=== PATIENT | female | born 1960 | race Caucasian/White ===

== ENCOUNTER → 2024-04-28 16:09 | Outpatient (REF) | payer BC, SELFPAY | LOC: OLAB 16:09 | PROVIDERS: ATTENDING PHYSICIAN Obstetrics & Gynecology; FAMILY PHYSICIAN Family Medicine | DX: N39.0 Urinary tract infection, site not specified (principal) | CPT/HCPCS: 87086 ==

== ENCOUNTER → 2024-05-14 09:56 | Outpatient (REF) | payer BC, SELFPAY ==
[2024-05-14 10:43] LABS: % Eosinophils 3.5 % (0-6); % Immature Granulocytes 0.2 % (0-0.5); % Lymphocytes 21.9 % (20.5-51.1); % Monocytes 8.7 % (1.7-9.3); % Neutrophils 64.7 % (42.2-75.2); Absolute Basophils 0.1 10^3/uL (0-0.2); Absolute Eosinophils 0.2 10^3/uL (0-0.7); Absolute Lymphocytes 1.4 10^3/uL (1.2-3.4); Absolute Monocytes 0.5 10^3/uL (0.1-0.6); Hematocrit 44.5 % (37.0-47.0); Hemoglobin 14.8 g/dL (12.0-16.0); Mean Corp Hgb Conc. 33.3 g/dL (33.0-37.0); Mean Corpuscular Hgb 28.9 pg (27.0-31.0); Mean Corpuscular Volume 86.9 fL (81.0-99.0); Nucleated Red Blood Cells % 0 %; Platelet Count 188 10^3/uL (130-400); Red Blood Cell Count 5.12 10^6/uL (4.20-5.40); White Blood Cell Count 6.2 10^3/uL (4.8-10.8)
[2024-05-14 11:00] LABS: ALT (SGPT) 34 U/L (0-35); AST (SGOT) 35 U/L (14-36); Albumin 4.7 g/dl (3.5-5.0); Alkaline Phosphatase 84 U/L (38-126); Blood Urea Nitrogen 13 mg/dl (7-17); Carbon Dioxide 30 mmol/L (22-30); Chloride 99 mmol/L (98-107); Glucose 104 mg/dl (70-99); Potassium 4.2 mmol/L (3.5-5.1); Sodium 136 mmol/L (135-145); Total Bilirubin 1.3 mg/dl (0.2-1.3); Total Protein 7.9 g/dl (6.3-8.2); eGFR > 60.00
[2024-05-14 11:03] LABS: C-Reactive Protein < 5.00 mg/L (0.0-10.00)
[2024-05-14 11:18] LABS: Vitamin D, 25-OH*** 26.9 ng/mL (30-80)
[2024-05-14 11:32] LABS: TSH Reflex To Free T4 1.48 uIU/ml (0.47-4.68)
[2024-05-14 11:36] LABS: Ferritin 32.3 ng/ml (11.1-264.0)
[2024-05-14 11:51] LABS: Vitamin B12 961 pg/ml (239-931)
[2024-05-14 23:13] LABS: IgA 312 mg/dl (70-400)
== END ==
LOC: OLAB 09:56
PROVIDERS: ATTENDING PHYSICIAN Internal Medicine; FAMILY PHYSICIAN Family Medicine
DX: G62.9 Polyneuropathy, unspecified (principal); R89.4 Abnormal immunological findings in specimens from other organs, systems and tissues
CPT/HCPCS: 80053; 82306; 82607; 82728; 82784; 83516; 84443; 85025; 86140; 86231

== ENCOUNTER → 2024-05-21 09:53 | Outpatient (REF) | payer BC, SELFPAY ==
[2024-05-21 10:41] LABS: HDL Cholesterol 99 mg/dl; LDL Cholesterol, Calculated 89 mg/dl; Total Cholesterol 220 mg/dl (50-199); Triglyceride 160 mg/dl (10-149); Very Low Density Lipoprotein 32 mg/dl (0-30)
== END ==
LOC: OLAB 09:53
PROVIDERS: ATTENDING PHYSICIAN Physician Assistant; FAMILY PHYSICIAN Family Medicine
DX: Z00.00 Encounter for general adult medical examination without abnormal findings (principal)
CPT/HCPCS: 80061

== ENCOUNTER → 2024-09-21 19:26 | Outpatient (REF) | payer BC, SELFPAY | LOC: WDC 19:26 | PROVIDERS: ATTENDING PHYSICIAN Internal Medicine Hematology & Oncology; FAMILY PHYSICIAN Family Medicine | DX: Z12.31 Encounter for screening mammogram for malignant neoplasm of breast (principal) | CPT/HCPCS: 77063; 77067 ==

== ENCOUNTER 2024-11-26 11:09 | Emergency (ER) | payer BC, SELFPAY ==
[2024-11-26 11:13] VITALS: BP 175/98
[2024-11-26 11:50] LABS: Hematocrit 39.4 % (37.0-47.0); Hemoglobin 13.3 g/dL (12.0-16.0); Mean Corp Hgb Conc. 33.8 g/dL (33.0-37.0); Mean Corpuscular Hgb 28.9 pg (27.0-31.0); Mean Corpuscular Volume 85.5 fL (81.0-99.0); Mean Platelet Volume 10.5 fL (7.4-10.4); Platelet Count 160 10^3/uL (130-400); Red Blood Cell Count 4.61 10^6/uL (4.20-5.40); Red Cell Dist. Width 12.5 % (11.5-14.5)
[2024-11-26 11:57] LABS: ALT (SGPT) 48 U/L (0-35); AST (SGOT) 46 U/L (14-36); Albumin 4.1 g/dl (3.5-5.0); Alkaline Phosphatase 77 U/L (38-126); Blood Urea Nitrogen 18 mg/dl (7-17); Carbon Dioxide 30 mmol/L (22-30); Chloride 99 mmol/L (98-107); Glucose 102 mg/dl (70-99); Potassium 4.4 mmol/L (3.5-5.1); Sodium 134 mmol/L (135-145); eGFR > 60.00
[2024-11-26 12:05] LABS: Troponin I < 0.012 ng/ml
--- NOTE | 2024-11-26 12:19 | ED.GENMED ---
History of Present Illness
<RYLEE Bennett - Last Filed: 11/27/24 23:04>
General
Chief Complaint: Chest Pain
Source: patient
Exam Limitations: none
Time Seen by Provider: 11/26/24 12:14
History of Present Illness
History of Present Illness:
Patient is a 64-year-old female who presents to the ER for evaluation. Patient was sent by urgent care for evaluation of chest pressure. Patient reports since she has been intermittently sick with headaches nasal congestion body aches
intermittent fevers. Today at 7 AM she woke up with chest pressure. She was seen in urgent care and her blood pressure was elevated and was sent for further evaluation. She reports she is under a lot of stress with her job and feels that this is
why her blood pressure was up.
She reports since 7 AM her she has had pressure mostly center/left side of chest. She denies shortness of breath. She is a former smoker.
Past History
<RYLEE Bennett - Last Filed: 11/27/24 23:04>
Past History
ED Past Medical History: COPD and Other
ED Past Surgical History: None
Social History
Tobacco: Former smoker
Living: with family
Employment: Employed
Family History
Family History: Other
Review of Systems
<RYLEE Bennett - Last Filed: 11/27/24 23:04>
Review of Systems
Allergies reviewed?: Yes
All Other Systems: ROS reviewed and negative except as documented in HPI and ROS
Constitutional: Reports no symptoms
EENT: Reports no symptoms
Respiratory: Denies cough or trouble breathing
Cardiac: Reports chest pain; Denies diaphoresis, palpitations or syncope
ABD/GI: Reports no symptoms
: Reports no symptoms
Musculoskeletal: Reports no symptoms
Skin: Reports no symptoms
Neurological: Reports no symptoms
Psychiatric: Reports no symptoms
Phy Exam
<RYLEE Bennett - Last Filed: 11/27/24 23:04>
General Physical Exam
General Presentation: no apparent distress
General age: appears stated age
General Skin: warm and dry
General Habitus: normal
General Mental: alert
General Hydration: appears well hydrated
Cardiovascular Exam
Cardiovascular Exam: regular rate/rhythm, no murmur and normal peripheral pulses
Pulmonary Exam
Pulmonary Exam: lungs clear and no respiratory distress
Neurological Exam
Neurological Exam: alert and oriented x3
Musculoskeletal Exam
Musculoskeletal Exam: full ROM
Skin Exam
Skin Exam: normal color and warm/dry
Psychiatric Exam
Psychiatric Exam: normal mood/affect
Scores
<RYLEE Bennett - Last Filed: 11/27/24 23:04>
Heart Score for Chest Pain Patients
STEMI patient?: Not applicable
Course
<RYLEE Bennett - Last Filed: 11/27/24 23:04>
Orders/Labs/Results
Orders:
Orders
11/26/24 11:18
ECG [Electrocardiogram (*1)] Urgent
Reason for Study: Chest Pain
EKG- Treatment ONCE
11/26/24 11:31
Complete Blood Count/With Diff Urgent
Comprehensive Metabolic Panel Urgent
Troponin I Urgent
11/26/24 12:27
Ibuprofen [Motrin] 600 mg PO NOW STA
11/26/24 12:28
Chest [CR Chest - 2 Views ] Urgent
Comment:
Reason For Exam: chest pain
11/26/24 12:39
Ibuprofen [Motrin] 600 mg .ROUTE .STK-MED ONE
11/26/24 13:04
EKG- Treatment ONCE
11/26/24 13:22
COVID-19 Antigen Urgent
Source: Nasal Swab
Influenza A+B Rapid Molecular Urgent
ELIAS Source: Nasal Swab
Specimen Description:
11/26/24 14:30
Electrocardiogram (*1) Stat
Reason for Study: Other
Other Reason for Exam: chest pain
11/26/24 14:43
Troponin I Urgent
11/26/24 16:41
ECG [Electrocardiogram (*1)] Urgent
Reason for Study: Chest Pain
Other Reason for Exam: serial troponin
EKG- Treatment ONCE
11/26/24 16:46
Troponin I Urgent
Abnormal Lab Results
11/26/24 11/26/24
11:31 13:22
WBC 3.0 L 10^3/uL
(4.8-10.8)
MPV 10.5 H fL
(7.4-10.4)
Absolute Lymphs (auto) 1.0 L 10^3/uL
(1.2-3.4)
Sodium 134 L mmol/L
(135-145)
BUN 18 H mg/dl
(7-17)
Glucose 102 H mg/dl
(70-99)
AST 46 H U/L
(14-36)
ALT 48 H U/L
(0-35)
SARS-CoV-2 Antigen Positive A
(Negative)
11/26/24 11:31
11/26/24 11:31
Vital Signs
Initial and Last Documented VS:
Initial Vital Signs
Pulse Resp BP Pulse Ox
70 16 175/98 100
11/26/24 11:13 11/26/24 11:13 11/26/24 11:13 11/26/24 11:13
Last Documented Vital Signs
Temp Pulse Resp BP Pulse Ox
98.0 F 66 22 151/83 98
11/26/24 11:17 11/26/24 16:00 11/26/24 15:00 11/26/24 16:00 11/26/24 16:00
<Lincoln Billings MD - Last Filed: 11/26/24 17:58>
Orders/Labs/Results
Orders:
Orders
11/26/24 11:18
ECG [Electrocardiogram (*1)] Urgent
Reason for Study: Chest Pain
EKG- Treatment ONCE
11/26/24 11:31
Complete Blood Count/With Diff Urgent
Comprehensive Metabolic Panel Urgent
Troponin I Urgent
11/26/24 12:27
Ibuprofen [Motrin] 600 mg PO NOW STA
11/26/24 12:28
Chest [CR Chest - 2 Views ] Urgent
Comment:
Reason For Exam: chest pain
11/26/24 12:39
Ibuprofen [Motrin] 600 mg .ROUTE .STK-MED ONE
11/26/24 13:04
EKG- Treatment ONCE
11/26/24 13:22
COVID-19 Antigen Urgent
Source: Nasal Swab
Influenza A+B Rapid Molecular Urgent
ELIAS Source: Nasal Swab
Specimen Description:
11/26/24 14:30
Electrocardiogram (*1) Stat
Reason for Study: Other
Other Reason for Exam: chest pain
11/26/24 14:43
Troponin I Urgent
11/26/24 16:41
ECG [Electrocardiogram (*1)] Urgent
Reason for Study: Chest Pain
Other Reason for Exam: serial troponin
EKG- Treatment ONCE
11/26/24 16:46
Troponin I Urgent
Abnormal Lab Results
11/26/24 11/26/24
11:31 13:22
WBC 3.0 L 10^3/uL
(4.8-10.8)
MPV 10.5 H fL
(7.4-10.4)
Absolute Lymphs (auto) 1.0 L 10^3/uL
(1.2-3.4)
Sodium 134 L mmol/L
(135-145)
BUN 18 H mg/dl
(7-17)
Glucose 102 H mg/dl
(70-99)
AST 46 H U/L
(14-36)
ALT 48 H U/L
(0-35)
SARS-CoV-2 Antigen Positive A
(Negative)
11/26/24 11:31
11/26/24 11:31
Vital Signs
Initial and Last Documented VS:
Initial Vital Signs
Pulse Resp BP Pulse Ox
70 16 175/98 100
11/26/24 11:13 11/26/24 11:13 11/26/24 11:13 11/26/24 11:13
Last Documented Vital Signs
Temp Pulse Resp BP Pulse Ox
98.0 F 66 22 151/83 98
11/26/24 11:17 11/26/24 16:00 11/26/24 15:00 11/26/24 16:00 11/26/24 16:00
<RYLEE Bennett - Last Filed: 11/27/24 23:04>
MDM/Problems Addressed
Differential Diagnosis Includes:
Not limited to COVID, influenza, pneumonia, musculoskeletal pain, less likely ACS
MDM/Problems Addressed:
Patient is a 64-year-old female who was been sick with cold symptoms since Alex presented no acute to the ER for chest pain which started this morning at 7 AM and was sent here for evaluation. She was also hypertensive on urgent care. Patient
presents awake alert no acute distress she denies any shortness of breath. No acute findings on chest x-ray. Patient was found to be COVID-positive. Initial cardiac troponin negative no acute findings on EKG. Will recheck and repeat troponin and
EKG however patient with no cardiac symptoms possible musculoskeletal from viral syndrome.
Patient's troponin minimally increased nonsignificant. Patient is currently asymptomatic and chest pain-free. No history of cardiac disease no acute findings on EKG. Case d/c with DR Billings who assumed full pt care.
<RYLEE Bennett - Last Filed: 11/27/24 23:04>
*Radiology
Radiology exam reviewed: radiology read reviewed
*Pulse Oximetry
Patient hypoxic: no
*EKG
Interpreted by ED Provider?: Yes
Interpretation: normal
Comparison EKG: no changes
Heart Rate: 65
Rate: normal
Rhythm: sinus
Ischemia: non-specific ST changes
*Critical Care Note
Total Time (30-74mins, 75-104mins- exclusive of procedures): Not Applicable
ED Attending Note
<RYLEE Bennett - Last Filed: 11/27/24 23:04>
-
Portions of this chart may have been created with voice recognition software.� Occasional wrong word or��sound alike� substitutions may have occurred due to the inherent limitations of voice recognition software.
<Lincoln Billings MD - Last Filed: 11/26/24 17:58>
ED Attending Note
Patient seen and examined by attending physician: Yes
I performed the substantive portion of visit, reviewed & personally made and approve the management plan that is documented in note by myself or VAMSHI.: Yes
ED Attending Note:
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 Lasted a few hours. Nonpleuritic. No shortness of breath. Symptoms have essentially resolved since this morning. Has been working significantly
recently and is tired and worn out.
On exam patient is nontoxic in no distress. Warm and dry. Perfusing well. Lungs clear and equal. Heart regular rate and rhythm. Nonfocal.
Patient has a positive COVID test. Troponins have all been normal but minuscule he trending upward. EKGs have all been normal. Given patient's symptoms along with the trending upward of troponin, prudent treatment would be to stay in the hospital
continued observation continue trending troponin and have cardiac involvement. This was highly recommended to the patient. She is fully aware that if this was cardiac in nature this could be life-threatening if she leaves. However she refuses to
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 Patient is well-known to me and again I stressed and pleaded for her to stay but she is insisting on leaving the follow-up.
Of note patient symptoms are not consistent with a PE. They are nonpruritic she has no shortness of breath. No symptoms currently.
Discharge Plan
Departure
Patient Disposition: Home (Routine Discharge)
Date of Disposition: 11/26/24
Time of Disposition: 17:57
Patient with high blood pressure during this ER visit?: Yes
Condition: Fair
Covid-19: Confirmed COVID-19
Discharge Problem:
COVID-19
Instructions: COVID-19 in adults - Discharge instructions, Chest Pain CBC Follow Up, BLOOD PRESSURE
Prescriptions:
No Action
loperamide 2 MG capsule
2 mg PO Q4HPRN PRN (Reason: loose stool)
umeclidinium-vilanterol [Anoro Ellipta] 1 EACH blister with device
1 ea IH DAILY
albuterol sulfate 18 GM HFA aerosol inhaler
8.5 gm IH PRN PRN (Reason: sob)
armodafinil 150 MG tablet
150 mg PO HS
naproxen sodium [Aleve] 220 MG tablet
220 mg PO PRN PRN (Reason: pain)
Referrals:
Sundeep Beltrán DO [Family Provider] -
Activity Restrictions/Additional Instructions:
As discussed patient to get plenty rest stay well-hydrated. Follow-up close with your family doctor in the next several days for reevaluation of your symptoms including your blood pressure which was elevated here in the ER today.
Interventions
Interventions:
*Risk Screen - Suicide Last Done: 11/26/24 12:57
*General Assessment Last Done: 11/26/24 12:57
*Neglect/Abuse Screening Last Done: 11/26/24 12:57
*ED COVID-19 Vaccine History Last Done: 11/26/24 12:57
*Nursing Disposition Last Done: 11/26/24 18:25
ED- Cardiac Assessment Last Done: 11/26/24 14:14
ED- Pulmonary Assessment Last Done: 11/26/24 14:14
Discharge Date and Time
Discharge Date/Time: 11/26/24 18:26
Print Language: [id number]
[2024-11-26 12:30] LABS: % Basophils 0.3 % (0-2); % Immature Granulocytes 0.3 % (0-0.5); % Lymphocytes 35.1 % (20.5-51.1); % Monocytes 8.8 % (1.7-9.3); % Neutrophils 52.5 % (42.2-75.2); Absolute Eosinophils 0.1 10^3/uL (0-0.7); Absolute Monocytes 0.3 10^3/uL (0.1-0.6); Absolute Neutrophils 1.6 10^3/uL (1.4-6.5); Nucleated Red Blood Cells % 0 %
[2024-11-26] MEDS: MOTRIN 600 MG PO (12:53)
[2024-11-26 12:58] VITALS: BP 160/87
[2024-11-26 13:42] VITALS: BP 154/83
[2024-11-26 13:55] LABS: COVID-19 Antigen Positive (Negative)
[2024-11-26 14:00] VITALS: BP 153/90
[2024-11-26 15:15] VITALS: BP 150/88
[2024-11-26 15:22] LABS: Troponin I 0.014 ng/ml
[2024-11-26 16:00] VITALS: BP 151/83
[2024-11-26 17:27] LABS: Troponin I 0.021 ng/ml
== END 2024-11-26 18:26 | disposition home or self-care (01) ==
LOC: EMR 11:09
PROVIDERS: Emergency Medicine; Nurse Practitioner; EMERGENCY PHYSICIAN Emergency Medicine; FAMILY PHYSICIAN Family Medicine
DX: U07.1 COVID-19 (principal); J44.9 Chronic obstructive pulmonary disease, unspecified; R03.0 Elevated blood-pressure reading, without diagnosis of hypertension; Z87.891 Personal history of nicotine dependence
CPT/HCPCS: 99285; 71046; 80053; 84484; 85025; 87502; 87811; 93005

== ENCOUNTER → 2025-03-27 09:19 | Outpatient (REF) | payer BC, SELFPAY | LOC: HWRCS 09:19 | PROVIDERS: ATTENDING PHYSICIAN Internal Medicine; FAMILY PHYSICIAN Family Medicine | DX: I47.19 Other supraventricular tachycardia (principal); R06.02 Shortness of breath | CPT/HCPCS: 93306 ==

== ENCOUNTER → 2025-05-17 09:30 | Outpatient (REF) | payer BC, SELFPAY ==
[2025-05-17 13:01] LABS: ALT (SGPT) 19 U/L (0-35); AST (SGOT) 24 U/L (14-36); Albumin 4.2 g/dl (3.5-5.0); Alkaline Phosphatase 68 U/L (38-126); Blood Urea Nitrogen 19 mg/dl (7-17); Calcium 9.6 mg/dl (8.4-10.2); Carbon Dioxide 28 mmol/L (22-30); Chloride 103 mmol/L (98-107); Glucose 100 mg/dl (70-99); HDL Cholesterol 88 mg/dl; LDL Cholesterol, Calculated 128 mg/dl; Potassium 4.5 mmol/L (3.5-5.1); Sodium 137 mmol/L (135-145); Total Bilirubin 0.9 mg/dl (0.2-1.3); Total Cholesterol 239 mg/dl (50-199); Triglyceride 119 mg/dl (10-149); Very Low Density Lipoprotein 23 mg/dl (0-30); eGFR > 60.00
[2025-05-17 14:27] LABS: Glycohemoglobin (HgbA1c) 5.6 % (4.0-5.6)
== END ==
LOC: HWLAB 09:30
PROVIDERS: ATTENDING PHYSICIAN Internal Medicine; FAMILY PHYSICIAN Family Medicine; REFERRING PHYSICIAN Internal Medicine
DX: E55.9 Vitamin D deficiency, unspecified (principal); E78.1 Pure hyperglyceridemia; R73.01 Impaired fasting glucose; Z85.048 Personal history of other malignant neoplasm of rectum, rectosigmoid junction, and anus; R19.5 Other fecal abnormalities; R14.3 Flatulence
CPT/HCPCS: 36415; 80053; 80061; 82306; 83036

== ENCOUNTER → 2025-05-22 08:45 | Outpatient (REF) | payer BC, SELFPAY | LOC: HWRAD 08:45 | PROVIDERS: ATTENDING PHYSICIAN Internal Medicine; FAMILY PHYSICIAN Family Medicine | DX: K76.0 Fatty (change of) liver, not elsewhere classified (principal) | CPT/HCPCS: 76700 ==

== ENCOUNTER 2025-06-18 06:28 | Day surgery (SDC) | payer BC, SELFPAY | END 2025-06-18 11:58 | disposition home or self-care (01) | LOC: GI 06:28 | PROVIDERS: ATTENDING PHYSICIAN Internal Medicine | DX: Z12.11 Encounter for screening for malignant neoplasm of colon (principal); K64.4 Residual hemorrhoidal skin tags; K57.30 Diverticulosis of large intestine without perforation or abscess without bleeding; Z85.048 Personal history of other malignant neoplasm of rectum, rectosigmoid junction, and anus | CPT/HCPCS: 45380; 88305 ==

== ENCOUNTER → 2025-07-30 14:31 | Outpatient (REF) | payer BC, SELFPAY | LOC: MRI 14:31 | PROVIDERS: ATTENDING PHYSICIAN Internal Medicine; REFERRING PHYSICIAN Family Medicine | DX: K76.0 Fatty (change of) liver, not elsewhere classified (principal) | CPT/HCPCS: 74181; 76391 ==

== ENCOUNTER → 2025-09-05 16:36 | Outpatient (REF) | payer BC, SELFPAY | LOC: REG 16:36 | PROVIDERS: ATTENDING PHYSICIAN Internal Medicine; FAMILY PHYSICIAN Family Medicine | DX: Z85.048 Personal history of other malignant neoplasm of rectum, rectosigmoid junction, and anus (principal); R19.5 Other fecal abnormalities; R14.3 Flatulence | CPT/HCPCS: 82653 ==

== ENCOUNTER → 2025-09-10 11:44 | Outpatient (REF) | payer BC, SELFPAY ==
[2025-09-10 12:43] LABS: Urine Character Clear (Clear)
[2025-09-10 12:50] LABS: Urine White Cell 0-2 /HPF (0-5)
[2025-09-10 12:54] LABS: Hematocrit 43.8 % (37.0-47.0); Hemoglobin 14.3 g/dL (12.0-16.0); Mean Corp Hgb Conc. 32.6 g/dL (33.0-37.0); Mean Corpuscular Volume 88.5 fL (81.0-99.0); Platelet Count 208 10^3/uL (130-400); Red Cell Dist. Width 12.7 % (11.5-14.5)
[2025-09-10 13:18] LABS: Blood Urea Nitrogen 19 mg/dl (7-17); Calcium 9.6 mg/dl (8.4-10.2); Carbon Dioxide 31 mmol/L (22-30); Chloride 101 mmol/L (98-107); Glucose 100 mg/dl (70-99); Potassium 4.6 mmol/L (3.5-5.1); Sodium 137 mmol/L (135-145); eGFR > 60.00
== END ==
LOC: REG 11:44
PROVIDERS: ATTENDING PHYSICIAN Urology; FAMILY PHYSICIAN Family Medicine
DX: R15.9 Full incontinence of feces (principal); N39.41 Urge incontinence; Z01.818 Encounter for other preprocedural examination
CPT/HCPCS: 36415; 80048; 81003; 81015; 85027; 87086; 93005

== ENCOUNTER 2025-10-08 05:52 | Day surgery (SDC) | payer BC, SELFPAY ==
[2025-10-08 06:18] VITALS: BMI 24.8
[2025-10-08 06:19] VITALS: BMI 24.8
[2025-10-08 06:22] VITALS: BP 106/58
[2025-10-08] MEDS: NORMOSOL-R/PLASMALYTE-A 1000 IV (06:39)
[2025-10-08 08:04] VITALS: BP 112/68
[2025-10-08 08:15] VITALS: BP 113/64
[2025-10-08 08:30] VITALS: BP 117/54
[2025-10-08 08:41] VITALS: BP 110/54
[2025-10-08 08:45] VITALS: BP 111/54
[2025-10-08] MEDS: MOTRIN 600 MG PO (08:57)
== END 2025-10-08 09:00 | disposition home or self-care (01) ==
LOC: SDS 05:52
PROVIDERS: ATTENDING PHYSICIAN Urology
DX: N39.41 Urge incontinence (principal); R15.9 Full incontinence of feces
CPT/HCPCS: 64590; 64561; 72170; 76000; C1767; C1778; C1787; L8681